=== PATIENT | male | born 2000 | race Caucasian/White ===

== ENCOUNTER 2025-05-11 10:03 | Emergency (ER) | payer OTHER, SELFPAY ==
[2025-05-11 10:07] VITALS: BP 157/87
--- NOTE | 2025-05-11 10:33 | ED.GENMED ---
History of Present Illness
General
Chief Complaint: Musculo-Skeletal Complaint
Source: patient
Exam Limitations: none
Time Seen by Provider: 05/11/25 10:13
Nursing documentation reviewed up to this point in time: agreed with
History of Present Illness
History of Present Illness:
24-year-old male presenting to the emergency department today with concerns of left shoulder discomfort after a popping sensation while weightlifting dumbbells overhead just prior to arrival. Unable to move at the shoulder since. Denies any
numbness weakness distally. Denies any chest pain shortness of breath. Denies similar symptoms in the past.
Review of Systems
Review of Systems
Allergies reviewed?: Yes
All Other Systems: ROS reviewed and negative except as documented in HPI and ROS
Phy Exam
Physical Exam
Physical Exam:
GENERAL: Alert , in no apparent distress
EYE: pupils equal and reactive
NECK: Supple, no significant adenopathy.
ENT: o/p clr, mmm.
CARDIAC: Regular rate and rhythm .
LUNGS: Clear breath sounds bilaterally, no acute respiratory distress, no wheezes/rales/rhonchi
ABDOMEN: Soft, without focal tenderness, no r/g, no cvat
NEUROLOGICAL: Alert and oriented, no focal neuro deficits
SKIN: Warm and dry, skin intact.
MUSCULOSKELETAL: Deformity to the left shoulder unable to move at the left shoulder. No tenderness to the bony structures. Normal distal pulses and sensation
Course
Orders/Labs/Results
Orders:
Orders
05/11/25 10:10
Shoulder, Left, Trauma CR [CR Shoulder, Trauma - Left] Urgent
Comment: ?dislocation
Reason For Exam: pain
05/11/25 10:32
Ketorolac [Toradol] 15 mg IM NOW STA
05/11/25 10:38
CR Shoulder - Left Min 2 View* Urgent
Comment:
Reason For Exam: post reduction
Vital Signs
Initial and Last Documented VS:
Initial Vital Signs
Temp Pulse Resp BP Pulse Ox
98.2 F 81 16 157/87 100
05/11/25 10:07 05/11/25 10:07 05/11/25 10:07 05/11/25 10:07 05/11/25 10:07
Last Documented Vital Signs
Temp Pulse Resp BP Pulse Ox
98.2 F 81 16 157/87 100
05/11/25 10:07 05/11/25 10:07 05/11/25 10:07 05/11/25 10:07 05/11/25 10:34
Procedures
Joint/Fracture Reduction
Left Shoulder:
Indication for procedure:: Shoulder dislocation
Procedure completed by: Myself
Consent form signed: No
If no, reason: Emergency procedure
Joint reduced: without anesthesia
Anesthesia/sedation: Injection to joint space and Other (Left shoulder joint block with bupivacaine done in sterile technique)
Injury was: closed
Further treatement: needs re-check only
Post reduction exam: stable
Capillary Refill: normal
Normal distal neurovascular exam?: Yes
Peripheral Pulses: radial (left): 2+
MDM/Problems Addressed
MDM/Problems Addressed:
24-year-old male presenting to the emergency department today with dislocation of left shoulder. This was reduced here. Shoulder block was used to facilitate. Patient neurovascular intact stable for close outpatient follow-up with orthopedics.
Return precautions given.
*Pulse Oximetry
SaO2: 100
Oxygen Mode of Delivery: Room air
Patient hypoxic: no (100)
*Critical Care Note
Total Time (30-74mins, 75-104mins- exclusive of procedures): Not Applicable
ED Attending Note
-
Portions of this chart may have been created with voice recognition software.� Occasional wrong word or��sound alike� substitutions may have occurred due to the inherent limitations of voice recognition software.
Discharge Plan
Departure
Patient Disposition: Home (Routine Discharge)
Date of Disposition: 05/11/25
Time of Disposition: 11:29
Patient with high blood pressure during this ER visit?: No
Condition: Good
Covid-19: Not Applicable
Discharge Problem:
Anterior dislocation of left shoulder
Instructions: Shoulder Dislocation (DC)
Referrals:
NONE,* [Family Provider, Internal Medicine]
Willi Hernandez MD [Active, Orthopedics] - Follow up in 5-7 days
Gordon San MD [Active, Orthopedics] - Follow up in 5-7 days
Stand Alone Forms: Return to Work
Activity Restrictions/Additional Instructions:
You came to the emergency department today for concerns of a shoulder dislocation. This was reduced here. Please leave the sling in place until follow-up with orthopedics within the next week. Return for any worsening, new or concerning symptoms.
Interventions
Interventions:
*Risk Screen - Suicide Last Done: 05/11/25 10:07
*General Assessment Last Done: 05/11/25 10:10
*Neglect/Abuse Screening Last Done: 05/11/25 10:03
*ED- Fall Risk Assessment Last Done: 05/11/25 10:03
ED-Musculoskeletal Assessment Last Done: 05/11/25 10:03
Discharge Date and Time
Print Language: SPANISH
[2025-05-11] MEDS: TORADOL 15 MG IM (10:53)
== END 2025-05-11 11:35 | disposition home or self-care (01) ==
LOC: EMR 10:03
PROVIDERS: EMERGENCY PHYSICIAN Student in an Organized Health Care Education/Training Program
DX: S43.015A Anterior dislocation of left humerus, initial encounter (principal); X50.0XXA Overexertion from strenuous movement or load, initial encounter; Y93.B3 Activity, free weights
CPT/HCPCS: 99284; 23650; 96372; 73030